=== PATIENT | male | born 1955 | race Caucasian/White ===

== ENCOUNTER 2021-02-27 10:21 | Outpatient (CLI) | payer MEDICARE, OTHER, SELFPAY ==
--- NOTE | 2021-02-27 10:46 | ECG_ITS ---
Measurements Intervals [place] Rate: 62 P: 13 SD: 163 QRS: 2 QRSD: 109 T: 40 QT: 422 QTc: 429 Interpretive Statements SINUS RHYTHM ATRIAL PREMATURE COMPLEX POOR R WAVE PROGRESSION, ANTERIOR LEADS BASELINE ARTIFACT- I, II, III, AVR, AVL, AVF BORDERLINE ECG Electronically Signed On 02-27-2021 11:17:13 CDT by Thomas Enriquez D.O.
[2021-02-27 11:16] LABS: INR 1.1; Prothrombin Time 14.3 Seconds (11.1-14.7)
[2021-02-27 11:17] LABS: Anion Gap 5 mmol/L (8-16); Blood Urea Nitrogen 16 mg/dL (9-20); Calcium 9.4 mg/dL (8.4-10.2); Carbon Dioxide 30 mmol/L (22-30); Chloride 101 mmol/L (98-107); Estimated Glomerular Filt Rate > 60; Glucose 101 mg/dL (65-110); Partial Thromboplastin Time 32.6 SECONDS (22.3-36.8); Potassium 4.2 mmol/L (3.4-5.0); Sodium 136 mmol/L (137-145)
== END 2021-02-27 10:22 | disposition home or self-care (01) ==
PROVIDERS: Anesthesiology; Visit Provider Urology
DX: Z01.818 Encounter for other preprocedural examination (principal); N40.0 Benign prostatic hyperplasia without lower urinary tract symptoms; E78.5 Hyperlipidemia, unspecified; I10 Essential (primary) hypertension; Z79.01 Long term (current) use of anticoagulants; Z79.899 Other long term (current) drug therapy
CPT/HCPCS: 36415; 80048; 85610; 85730; 87077; 87086; 87088; 87186; 93005

== ENCOUNTER 2021-03-04 00:27 | Day surgery (SDC) | payer MEDICARE, OTHER, SELFPAY ==
[2021-02-26 14:40] VITALS: BMI 39.5
[2021-03-04] VITALS (7 sets, daily range): BP systolic 103–123; BP diastolic 61–79; PULSE 68–83; RESP 12–20; TEMP 36.9–37.1; O2SAT 94–98
[2021-03-04] MEDS: LACTATED RINGERS 1,000 ML 30 ML IV CONT (06:40)
--- NOTE | 2021-03-04 06:49 | P.PNAN_ITS ---
Anes - Initial Pre Proc Eval Procedure: Operation Date: 03/04/21 07:30 Proposed Procedures p Urolift - Ruddy Romero MD Date/Time: 03/04/21 06:49 Surgeon: Ruddy Romero MD Pre Op Diagnosis: bph Patient Data Age: 65 Gender: M Height: 1.85 m Weight: 136 kg Allergies Allergy/AdvReac Type Severity Reaction Status Date / Time No Known Allergies Allergy Verified 02/26/21 14:35 Home Medications Medication Instructions Recorded Confirmed Type allopurinol 100 mg PO HS 02/26/21 02/26/21 History carvedilol 25 mg PO HS 02/26/21 02/26/21 History citalopram 40 mg PO HS 02/26/21 02/26/21 History ezetimibe 10 mg PO HS 02/26/21 02/26/21 History finasteride 5 mg PO HS 02/26/21 02/26/21 History gabapentin 300 mg PO HS 02/26/21 02/26/21 History levothyroxine [Euthyrox] 50 mcg PO DAILY 02/26/21 02/26/21 History spironolactone 25 mg PO DAILY 02/26/21 02/26/21 History tamsulosin 0.8 mg PO HS 02/26/21 02/26/21 History warfarin 5 mg PO DAILY 02/26/21 02/26/21 History Patient hx anesthesia problems: none Family hx anesthesia problems: none Results Review: All pre-operative results and documents have been reviewed as part of the pre-operative evaluation. [facility] Past Medical History Medical History (Updated 03/04/21 @ 06:50 by Deon Her DO) Anxiety Cardiomyopathy CHF (congestive heart failure) Hyperlipidemia Hypertension Hypothyroidism NANETTE (obstructive sleep apnea) CPAP Social History Social History Smoking status: Never smoker Alcohol intake: never Substance use: never Substance use type: does not use Living arrangements: with family Spiritual care concerns: No Anes - Eval Final PreProcedure Day of Procedure 03/04/21 06:49 Patient weight: obese Heart: regular rate and rhythm Lungs: clear to auscultation and normal air movement Airway: Mallampati scale class III Neurological: alert and oriented Last oral intake: >/= 8 hours ASA classification: IV Emergent: no Anesthetic plan: proceed Anesthesia type and monitoring: general LMA and standard monitoring Results Review: All pre-operative results and documents have been reviewed as part of the pre-operative evaluation. Informed Consent: The patient's anesthetic plan and its attendant risks and benefits were discussed with the patient/family/POA. Questions were solicited and answers provided to the satisfaction of the patient/family/POA.
--- NOTE | 2021-03-04 07:41 | WPDHPUPDATE1 ---
History and Physical Update Update Date/Time: 03/04/21 07:41 History and Physical has been reviewed, including an updated exam of the patient. There are NO changes in the patient's condition. Risks, benefits, and alternatives have been discussed and questions answered. Patient agrees to proceed with procedure. Proceed with urolift
[2021-03-04] MEDS: ceFAZolin 3 GM/D5W 100 ML 100 ML IVPB (07:45)
[2021-03-04] MEDS: LIDOCAINE HCL 2% GEL UROJET 10 ML PKG MUCOUS MEM (08:03)
--- NOTE | 2021-03-04 08:18 | W.PM.PROC2 ---
Procedure Note - Detailed Date of Procedure 03/04/21 Pre-op Diagnosis bph Post-op Diagnosis same Procedure Performed UroLift with 6 maira Surgeon Ruddy Romero MD Anesthesia general Description of Procedure Patient is taken to the operative suite and correctly identified. Once anesthesia was obtained he was placed in dorsal lithotomy position and prepped and draped usual sterile fashion. Scope was introduced. The bladder had no tumors. We placed a total of 6 UroLift maira. The 1st 1 was placed 1 cm proximal to the bladder neck on the left lobe. Second 1 was placed in similar location on the right side. We then placed a 3rd staple at the level the [place] at the 2 o'clock position. Fourth staple was placed at the 5 o'clock position. Fifth stable was placed on the left lobe at the 10 o'clock position and the final staple was placed at the 8 o'clock position. There was good hemostasis. 2% viscous lidocaine was placed. Patient was taken recovery room stable condition. Drains No Packing No Pathology none sent Complications No immediate complications Condition stable Disposition PACU
== END 2021-03-04 09:52 | disposition home or self-care (01) ==
PROVIDERS: PCP Internal Medicine; Visit Provider Urology
PROC: 0T7D8DZ Dilation of Urethra with Intraluminal Device, Via Natural or Artificial Opening Endoscopic (ICD-10-PCS; CPT 52441; principal; 2021-03-04 07:30)
DX: N40.1 Benign prostatic hyperplasia with lower urinary tract symptoms (principal); R33.8 Other retention of urine; I11.0 Hypertensive heart disease with heart failure; I50.9 Heart failure, unspecified; I42.9 Cardiomyopathy, unspecified; E78.5 Hyperlipidemia, unspecified; E03.9 Hypothyroidism, unspecified; G47.33 Obstructive sleep apnea (adult) (pediatric); F41.9 Anxiety disorder, unspecified; Z79.01 Long term (current) use of anticoagulants; E66.9 Obesity, unspecified; Z68.39 Body mass index [BMI] 39.0-39.9, adult
CPT/HCPCS: C9740; A9270; J0690; J2250; J2405; J2704; J3010; J7120; L8699

== ENCOUNTER 2021-06-19 09:00 | Outpatient (CLI) | payer MEDICARE, OTHER, SELFPAY ==
[2021-06-19 09:48] LABS: Basophils Absolute Auto 0.1 K/mm3 (0.0-0.1); Basophils Percent Auto 0.6 % (0.2-1.2); Eosinophils Absolute Auto 0.3 K/mm3 (0-0.3); Eosinophils Percent Auto 3.8 % (0-4.4); Hematocrit 45.9 % (42.0-52.0); Hemoglobin 14.2 g/dL (14.0-18.0); Immature Granulocyte Absolute 0.02 K/mm3 (0.00-0.031); Immature Granulocyte Percent A 0.3 % (0-0.5); Lymphocytes Absolute Auto 1.86 K/mm3 (0.9-3.2); Lymphocytes Percent Auto 23.4 % (18.3-44.2); Mean Corpuscular HGB Conc 30.9 g/dl (32-36); Mean Corpuscular Hemoglobin 24.5 pg (26-34); Mean Corpuscular Volume 79.3 fl (80-100); Mean Platelet Volume 10.6 fl (7.4-10.4); Monocytes Absolute Auto 0.6 K/mm3 (0.1-0.6); Monocytes Percent Auto 7.9 % (2.6-8.5); Neutrophils Absolute Auto 5.1 K/mm3 (1.3-6.7); Platelet Count Result 238 k/mm3 (150-375); Red Blood Count 5.79 M/mm3 (4.6-6.20); Red Cell Distribution Width 18.5 % (11.5-14.5)
[2021-06-19 09:57] LABS: INR 1.4; Prothrombin Time 17.3 Seconds (11.1-14.7)
[2021-06-19 09:58] LABS: Anion Gap 8 mmol/L (8-16); Blood Urea Nitrogen 16 mg/dL (9-20); Carbon Dioxide 25 mmol/L (22-30); Chloride 104 mmol/L (98-107); Estimated Glomerular Filt Rate > 60; Glucose 102 mg/dL (65-110); Potassium 4.4 mmol/L (3.4-5.0); Sodium 137 mmol/L (137-145)
== END 2021-06-19 09:01 | disposition home or self-care (01) ==
LOC: ANHSURGERY 09:03
PROVIDERS: Anesthesiology; PCP Internal Medicine; Visit Provider Urology
DX: Z01.818 Encounter for other preprocedural examination (principal); R33.9 Retention of urine, unspecified; Z79.899 Other long term (current) drug therapy
CPT/HCPCS: 36415; 80048; 85025; 85610; 85730; 87077; 87086; 87186

== ENCOUNTER 2021-07-01 00:33 | Day surgery (SDC) | payer MEDICARE, OTHER, SELFPAY ==
[2021-06-18 10:24] VITALS: BMI 39.1
--- NOTE | 2021-06-18 10:40 | SUR.PREOP ---
Addendum entered by Kathy Bradford RN 06/24/21 10:38: PT TO ARRIVE AT 1030 ON 07/01/21 FOR SURGERY AT 1230. PT MAY HAVE ONE VISITOR WITH HIM. Original Note: Report to the Outpatient Waiting Room, entrance under the green pavilion located off [facility], at time _0600 on date _06/24/21 . OR Time: 0730 . - You will be asked a series of questions to screen for COVID 19 for your protection. - A mask is required within the hospital. - No visitors are allowed at this time. Preoperative COVID Testing Requirements: No COVID Test needed if: (proof is required; if not received patient will have Rapid Test prior to entry) - Patient has received COVID Vaccine at least 14 days prior to procedure date or - Patient has positive COVID test result within last 90 days of surgery date. COVID Test needed if above criteria is not met If not COVID vaccinated a COVID test must be conducted within 72 hours of surgery and patient is asked to isolate self from time of testing until procedure. You will go to the [employer] [facility] for your COVID testing. The [employer] [facility] site is located at the corner of [address] [facility]. You will only be called if COVID results are positive and your surgeon may reschedule your elective surgery date. Patients may have clear liquids (water, carbonated beverages, clear teas, apple juice) until 3 hours prior to surgery with a maximum of 20 ounces. - No food from midnight until time of surgery - Infants may have breast milk until 4 hours before surgery, formula 6 hours prior to surgery. - Children will be allowed to drink immediately following surgery. If applicable, please bring a bottle or sippy cup to assist with drinking. Juice, water, soda, and popsicles are readily available. For infants on formula, please bring formula the day of surgery. Pacifiers are allowed. Take the following medications with a SIP of water the morning of surgery: __levothyroxine Medications to discontinue per physician __coumadin 06/17/21,vitamins 06/21/21 Date to take last dose Please no make-up, nail burkinan, hairspray, perfume, deodorant, or body powder the day of surgery. No jewelry (including any body piercings) or valuables the day of surgery, leave them at home. Please take a shower or bath the night before, or the morning of, surgery with an antibacterial soap. Wear comfortable, loose fitting clothing. Children are encouraged to wear pajamas. - Jewelry must be removed prior to entering the operating room. Rings and piercings that are not removed may be cut off. - The hospital will not accept responsibility for valuables. - Please leave all valuables, including medications, at home the day of surgery. If you are going home after surgery, a licensed straddle bug driver must drive you home. - NO public transportation without another adult. - We recommend that an adult stay with you for 24 hours following discharge. - We also recommend that you do not drive, make important decision, drink alcoholic beverages, or take any drugs that were not prescribed by your health care provider for at least 24 hours after your discharge time. For Pediatric surgeries, we recommend two adults accompany the child home (only one inside the building at this time). Follow any additional instructions given to you from your surgeon. Telephone instructions given to _octaviano partida and asked if any additional questions and then verbalized understanding. Patient advised to call surgeon office or pre surgery nurse liaison [phone] if any additional questions.
--- NOTE | 2021-06-24 10:36 | PC.NURSE ---
Medication and health history changes updated. Pt states no other changes in medications or health history since initial interview. Pt to call Dr. Romero' office for instructions regarding re-starting/holding warfarin. New instructions reviewed with pt - denies further questions at this time.
[2021-07-01] VITALS (13 sets, daily range): BP systolic 86–132; BP diastolic 55–85; PULSE 58–77; RESP 10–20; TEMP 36.1–36.9; O2SAT 96–100; BMI 41.3
[2021-07-01] MEDS: LACTATED RINGERS 1,000 ML 30 ML IV CONT ×2 (11:20→14:10)
--- NOTE | 2021-07-01 11:31 | P.PNAN_ITS ---
Anes - Initial Pre Proc Eval Procedure: Operation Date: 07/01/21 12:30 Proposed Procedures p Trans Urethral Resection Prostate - Ruddy Romero MD Date/Time: 07/01/21 11:31 Surgeon: Ruddy Romero MD Pre Op Diagnosis: specified retention Patient Data Age: 65 Gender: M Height: 1.87 m Weight: 136.36 kg Allergies Allergy/AdvReac Type Severity Reaction Status Date / Time No Known Allergies Allergy Verified 07/01/21 11:07 Home Medications Medication Instructions Recorded Confirmed Type allopurinol 100 mg PO HS 02/26/21 07/01/21 History carvedilol 25 mg PO HS 02/26/21 07/01/21 History citalopram 40 mg PO HS 02/26/21 07/01/21 History ezetimibe 10 mg PO HS 02/26/21 07/01/21 History finasteride 5 mg PO HS 02/26/21 06/24/21 History gabapentin 300 mg PO HS 02/26/21 07/01/21 History levothyroxine [Euthyrox] 50 mcg PO DAILY 02/26/21 07/01/21 History spironolactone 25 mg PO DAILY 02/26/21 07/01/21 History tamsulosin 0.8 mg PO HS 02/26/21 07/01/21 History warfarin 5 mg PO DAILY 02/26/21 06/24/21 History ascorbic acid (vitamin C) [Vitamin 500 mg PO DAILY 06/18/21 07/01/21 History C] cholecalciferol (vitamin D3) 50 mcg PO DAILY 06/18/21 07/01/21 History [Vitamin D3] nitrofurantoin 100 mg PO Q12H 06/24/21 06/24/21 History Laboratory Tests 07/01/21 11:28 PT Pending INR Pending Patient hx anesthesia problems: none Family hx anesthesia problems: none Results Review: All pre-operative results and documents have been reviewed as part of the pre-operative evaluation. [facility] Past Medical History Medical History (Updated 03/04/21 @ 06:50 by Deon Her DO) Anxiety Cardiomyopathy CHF (congestive heart failure) Hyperlipidemia Hypertension Hypothyroidism NANETTE (obstructive sleep apnea) CPAP Social History Social History Smoking status: Never smoker Alcohol intake: never Substance use: never Substance use type: does not use Living arrangements: with family Spiritual care concerns: No Anes - Eval Final PreProcedure Day of Procedure 07/01/21 11:31 Patient weight: morbidly obese Heart: regular rate and rhythm Lungs: clear to auscultation Airway: Mallampati scale class III Neurological: alert and oriented Last oral intake: >/= 8 hours ASA classification: IV Emergent: no Anesthetic plan: proceed Anesthesia type and monitoring: general LMA and standard monitoring Results Review: All pre-operative results and documents have been reviewed as part of the pre-operative evaluation. Informed Consent: The patient's anesthetic plan and its attendant risks and benefits were discussed with the patient/family/POA. Questions were solicited and answers provided to the satisfaction of the patient/family/POA.
[2021-07-01 11:44] LABS: Prothrombin Time 12.4 Seconds (11.1-14.7)
--- NOTE | 2021-07-01 12:16 | P.HP_ITS ---
H&P: HPI History of Present Illness Date/Time: 07/01/21 12:16 Chief Complaint: Urinary retention Narrative: Patient is a 65-year-old male with history of urinary retention. He did undergo a UroLift which was unsuccessful as he continued to have retention. He now presents for transurethral section of prostate. He is aware that even resecting the prostate may still result in retention requiring intermittent cath eterization as he has lost some compliance and urodynamics. He understands wishes to proceed. Review of Systems Review of Systems: All systems reviewed & are unremarkable except as noted in HPI and below PMFSH Past Medical History Medical History Anxiety Cardiomyopathy CHF (congestive heart failure) Hyperlipidemia Hypertension Hypothyroidism NANETTE (obstructive sleep apnea) CPAP Social History Social History Smoking status: Never smoker Alcohol intake: never Substance use: never Substance use type: does not use Living arrangements: with family Spiritual care concerns: No Meds Home Medications and Allergies Home Medications Medication Instructions Recorded Confirmed Type allopurinol 100 mg PO HS 02/26/21 07/01/21 History carvedilol 25 mg PO HS 02/26/21 07/01/21 History citalopram 40 mg PO HS 02/26/21 07/01/21 History ezetimibe 10 mg PO HS 02/26/21 07/01/21 History finasteride 5 mg PO HS 02/26/21 06/24/21 History gabapentin 300 mg PO HS 02/26/21 07/01/21 History levothyroxine [Euthyrox] 50 mcg PO DAILY 02/26/21 07/01/21 History spironolactone 25 mg PO DAILY 02/26/21 07/01/21 History tamsulosin 0.8 mg PO HS 02/26/21 07/01/21 History warfarin 5 mg PO DAILY 02/26/21 06/24/21 History ascorbic acid (vitamin C) [Vitamin 500 mg PO DAILY 06/18/21 07/01/21 History C] cholecalciferol (vitamin D3) 50 mcg PO DAILY 06/18/21 07/01/21 History [Vitamin D3] nitrofurantoin 100 mg PO Q12H 06/24/21 06/24/21 History Allergies Allergy/AdvReac Type Severity Reaction Status Date / Time No Known Allergies Allergy Verified 07/01/21 11:07 Vital Signs Vital Signs - 24 hr 07/01/21 10:45 Temperature 36.1 C L Pulse Rate 77 Respiratory Rate 20 Blood Pressure 127/72 Pulse Oximetry 97 Exam Const: General: cooperative, comfortable and no acute distress HENMT: Head: normal to inspection Eyes: General: appearance normal, both eyes and all related structures Chest: Chest palpation & inspection: normal inspection of the chest Resp: Effort & Inspection: normal respiratory effort Cardio: Rate: regular rate Rhythm: regular rhythm GI: Inspection: normal to inspection Back/Spine/Pelvis: Back: no CVA tenderness Assessment and Plan Assessment and plan (1) Urinary retention: Code(s): R33.9 - Retention of urine, unspecified Status: Acute Assessment and Plan: Proceed with transurethral resection of prostate
--- NOTE | 2021-07-01 12:19 | WPDHPUPDATE1 ---
History and Physical Update Update Date/Time: 07/01/21 12:19 History and Physical has been reviewed, including an updated exam of the patient. There are NO changes in the patient's condition. Risks, benefits, and alternatives have been discussed and questions answered. Patient agrees to proceed with procedure.
[2021-07-01] MEDS: ceFAZolin 3 GM/D5W 100 ML 100 ML IVPB (12:50)
[2021-07-01] MEDS: LIDOCAINE HCL 2% GEL UROJET 10 ML PKG MUCOUS MEM (13:33)
--- NOTE | 2021-07-01 14:03 | W.PM.PROC2 ---
Procedure Note - Detailed Date of Procedure 07/01/21 Pre-op Diagnosis Urinary retention Post-op Diagnosis same Procedure Performed Transurethral resection of prostate, urethral dilation Surgeon Ruddy Romero MD Anesthesia general Description of Procedure Patient is taken to the operative suite correctly identified. Once anesthesia was obtained he was placed in dorsal lithotomy position and prepped and draped usual sterile fashion. Urethra was dilated up to 30 [place]. Twenty-seven [place] resectoscope sheath is inserted into the bladder. There were no tumors noted. We went ahead and resected the prostate from the bladder neck to the vera [place]. Prior Uro left sutures were seen and transected and removed. Hemostasis was achieved using electrocautery. There appeared to be good hemostasis at termination of procedure with an open prostatic channel. 2% viscous lidocaine was inserted into the urethra in a [address] was placed with 30 cc in the balloon. All prostatic chips were sent for analysis. Patient is taken recovery stable condition. Estimated Blood Loss 50 Drains Yes Packing No Pathology yes Complications No immediate complications Condition stable Disposition PACU
--- NOTE | 2021-07-01 17:13 | PC.NURSE ---
This patient, Osbaldo Ellis, was admitted to [facility]. Patient/family oriented to hospital policies and general routines including ID bracelet, bed and alarms, visiting hours, pain management, procedures, bathroom and other care routines, personal items, smoking policy, room service/diet, and visiting hours. Information on how to activate the Rapid Response Team has been discussed. Patient/Family are encouraged to report perceived risks to care and to ask questions if they do not understand what they are told or what they should do.
[2021-07-01] MEDS: CITALOPRAM HYDROBROMIDE 20 MG TABLET 40 MG PO (21:07)
[2021-07-01] MEDS: GABAPENTIN 300 MG CAPSULE PO (21:08)
[2021-07-01] MEDS: HYDROcodone/acetaminophen (*CRX) 5-325 MG TABLET 1 TAB PO (21:08)
[2021-07-01] MEDS: EZETIMIBE 10 MG TABLET PO (21:12)
[2021-07-01] MEDS: carvediloL 25 MG TABLET PO (21:12)
[2021-07-02] MEDS: HYDROcodone/acetaminophen (*CRX) 5-325 MG TABLET 1 TAB PO (04:19)
[2021-07-02 05:40] LABS: Hematocrit 41.6 % (42.0-52.0); Hemoglobin 12.9 g/dL (14.0-18.0)
[2021-07-02 05:55] LABS: Anion Gap 5 mmol/L (8-16); Blood Urea Nitrogen 16 mg/dL (9-20); Calcium 8.2 mg/dL (8.4-10.2); Carbon Dioxide 28 mmol/L (22-30); Chloride 103 mmol/L (98-107); Estimated CRCL calculation 140 ml/min; Estimated Glomerular Filt Rate > 60; Glucose 106 mg/dL (65-110); Potassium 4.4 mmol/L (3.4-5.0); Sodium 136 mmol/L (137-145)
[2021-07-02] MEDS: LEVOTHYROXINE SODIUM 50 MCG TABLET PO (06:28)
[2021-07-02 06:35] VITALS: BP 110/53; PULSE 76; RESP 20; TEMP 37.5; O2SAT 94
--- NOTE | 2021-07-02 07:08 | WPDANESPN ---
Anes - Prog Note Post-Op Date/Time: 07/02/21 07:08 Cardiovascular status: normal Respiratory status: normal Airway patency: baseline Mental status: baseline Post-Op hydration status: normal Vital Signs: Last Vital Signs Temp 99.5 F 07/02/21 06:35 Pulse 76 07/02/21 06:35 Resp 20 07/02/21 06:35 BP 110/53 L 07/02/21 06:35 Pulse Ox 94 07/02/21 06:35 Pain Score (VAS): 0 I/O: Intake & Output 07/01/21 07/01/21 07/02/21 15:59 23:59 07:59 Intake Total 1450 6270 6000 Output Total 5208 21211 3930 Balance -7726 -6747 1550 Laboratory Tests 07/02/21 05:15 07/02/21 05:15 07/01/21 07/02/21 07/02/21 11:28 05:15 05:15 Hgb 12.9 L Hct 41.6 L PT 12.4 INR 1.0 Sodium 136 L Potassium 4.4 Chloride 103 Carbon Dioxide 28 Anion Gap 5 L BUN 16 Creatinine 0.70 Estim Creat Clear Calc 140 Estimated GFR > 60 Glucose 106 Calcium 8.2 L Post-procedural complaints: none Patient Feedback: Patient satisfied with anesthetic care.
--- NOTE | 2021-07-02 07:33 | WPDUROPN2 ---
Progress Note: A&P Assessment and Plan (1) Urinary retention: Code(s): R33.9 - Retention of urine, unspecified Status: Acute Additional Plan Hold CBI. If urine remains clear will be discharged home later today with Sanchez catheter. Plan on removal of Sanchez on Wednesday or Wednesday. We will re-evaluate later this morning Subjective Subjective Date/Time Seen: 07/02/21 07:33 Post Op day: 1 (Transurethral resection of prostate) Principal diagnosis: Urinary retention Interval history: Doing well postoperative day 1. From transurethral resection of prostate. Urine is clear with minimal CBI. Review of Systems Review of Systems: All systems reviewed & are unremarkable except as noted in HPI and below Exam Const: General: cooperative Resp: Effort & Inspection: normal respiratory effort Cardio: Rate: regular rate Rhythm: regular rhythm GI: Inspection: normal to inspection Urinary Catheter: Urinary Catheter: patent and draining and urine clear Objective Data Vital Signs Vital Signs: Vital Signs - 24 hr 07/01/21 10:45 07/01/21 14:15 07/01/21 14:30 Temperature 36.1 C L 36.6 C Pulse Rate 77 71 67 Respiratory Rate 20 14 10 L Blood Pressure 127/72 132/85 117/67 Pulse Oximetry 97 100 100 07/01/21 14:45 07/01/21 15:05 07/01/21 15:25 Temperature Pulse Rate 69 70 69 Respiratory Rate 12 12 14 Blood Pressure 126/76 117/71 113/61 Pulse Oximetry 100 98 100 07/01/21 15:47 07/01/21 16:00 07/01/21 16:30 Temperature 36.3 C L Pulse Rate 68 66 65 Respiratory Rate 16 18 16 Blood Pressure 110/60 86/61 L 90/57 L Pulse Oximetry 100 97 96 07/01/21 17:30 07/01/21 17:35 07/01/21 21:12 Temperature Pulse Rate 58 L 72 Respiratory Rate 16 Blood Pressure 94/55 L Pulse Oximetry 100 07/01/21 22:00 07/02/21 06:35 Temperature 36.9 C 37.5 C Pulse Rate 72 76 Respiratory Rate 20 20 Blood Pressure 103/60 110/53 L Pulse Oximetry 96 94 Intake/Output Intake/Output: Intake & Output 06/29/21 06/30/21 07/01/21 07/02/21 23:59 23:59 23:59 23:59 Intake Total 7720 6000 Output Total 00622 0631 [facility] -[id number] [id number] Meds/Results Medications: Active Medications Generic Name Dose Route Start Last Admin Trade Name Freq PRN Reason Stop Dose Admin Hydrocodone Bitart/Acetaminophen 1 tab 07/01/21 15:47 07/02/21 04:19 Hydrocodone/Acetaminophen (*Crx) 5-325 Mg Tablet PO 1 tab Q4H PRN Administration Pain Rated 1-6 Carvedilol 25 mg 07/01/21 21:00 07/01/21 21:12 Carvedilol 25 Mg Tablet PO 25 mg HS APRIL Administration Cephalexin HCl 500 mg 07/02/21 09:00 Cephalexin 500 Mg Capsule PO QID APRIL Citalopram Hydrobromide 40 mg 07/01/21 21:00 07/01/21 21:07 Citalopram Hydrobromide 20 Mg Tablet PO 40 mg HS APRIL Administration Docusate Sodium 100 mg 07/01/21 17:00 07/01/21 18:06 Docusate Sodium 100 Mg Capsule PO Not Given BID APRIL Ezetimibe 10 mg 07/01/21 21:00 07/01/21 21:12 Ezetimibe 10 Mg Tablet PO 10 mg HS APRIL Administration Gabapentin 300 mg 07/01/21 21:00 07/01/21 21:08 Gabapentin 300 Mg Capsule PO 300 mg HS APRIL Administration Hyoscyamine 0.125 mg 07/01/21 15:47 Hyoscyamine Sulfate 0.125 Mg Tablet SUBLINGUAL Q6H PRN Bladder Spasm Dextrose/Lactated Ringer's 1,000 mls @ 125 mls/hr 07/01/21 15:47 07/01/21 18:05 Dextrose 5%/Lactated Ringers IV CONT Not Given .Q8H APRLI Levothyroxine Sodium 50 mcg 07/02/21 06:30 07/02/21 06:28 Levothyroxine Sodium 50 Mcg Tablet PO 50 mcg DAILY@0630 APRIL Administration Morphine Sulfate 2 mg 07/01/21 15:47 Morphine Sulfate (*Crx) 2 Mg/Ml Inj IV PUSH Q2H PRN Pain Rated 7-10 Naloxone HCl 0.1 mg 07/01/21 15:47 Naloxone Hcl 0.4 Mg/Ml Vial IV PUSH Q2M PRN Opiate Reversal Spironolactone 25 mg 07/02/21 09:00 Spironolactone 25 Mg Tablet PO DAILY APRIL Labs Labs: Laboratory Results - last 24 hr 07/01/21
[2021-07-02] MEDS: DOCUSATE SODIUM 100 MG CAPSULE PO (09:08)
[2021-07-02] MEDS: CEPHALEXIN 500 MG CAPSULE PO ×2 (09:09→12:57)
[2021-07-02] MEDS: SPIRONOLACTONE 25 MG TABLET PO (09:09)
--- NOTE | 2021-07-02 10:44 | PC.NURSE ---
Patients 3-way urethral catheter was clamped by Dr. Romero at 8:00. Drainage has been noted every hour. Most recent drainage was tea colored and did present a few small clots.
[2021-07-02 13:52] VITALS: BP 106/70; PULSE 88; RESP 18; TEMP 37; O2SAT 98
== END 2021-07-02 13:57 | disposition home or self-care (01) ==
LOC: ANHSURGERY 10:23 → ANHSUROVER 15:49
PROVIDERS: PCP Internal Medicine; Visit Provider Urology
PROC: 0VT08ZZ Resection of Prostate, Via Natural or Artificial Opening Endoscopic (ICD-10-PCS; CPT 52601; principal; 2021-07-01 12:30)
DX: N40.1 Benign prostatic hyperplasia with lower urinary tract symptoms (principal); R33.8 Other retention of urine; I11.0 Hypertensive heart disease with heart failure; I50.9 Heart failure, unspecified; I42.9 Cardiomyopathy, unspecified; E78.5 Hyperlipidemia, unspecified; E03.9 Hypothyroidism, unspecified; G47.33 Obstructive sleep apnea (adult) (pediatric); F41.9 Anxiety disorder, unspecified; E66.01 Morbid (severe) obesity due to excess calories; Z68.41 Body mass index [BMI] 40.0-44.9, adult; Z79.01 Long term (current) use of anticoagulants
CPT/HCPCS: 52601; 36415; 80048; 85014; 85018; 85610; 88305; A9270; J0690; J2250; J2270; J2405; J2704; J7120